=== PATIENT | male | born 1975 | race Caucasian/White ===

== ENCOUNTER 2017-09-18 07:19 | Emergency (ER) | payer OTHER ==
[~2017-09-18] VITALS: Ht 177.8 cm; Wt 68.0 kg
[2017-09-18] MEDS ORDERED: IBUPROFEN800 MG PO (09:31)
[2017-09-18] MEDS ORDERED: AMOX-CLAV 875-1 EACH PO (09:31)
== END 2017-09-18 09:58 | disposition home or self-care (01) ==
LOC: ER 07:19
DX: H92.01 Otalgia, right ear (principal)

== ENCOUNTER → 2017-09-27 | Emergency (ER) | payer OTHER ==
[~2017-09-27] MED LIST: AMOX-CLAV 875-1 EACH PO; IBUPROFEN800 MG PO
== END | disposition home or self-care (01) ==
LOC: ER 02:17
DX: H60.8X1 Other otitis externa, right ear (principal)

== ENCOUNTER → 2017-12-07 | Emergency (ER) | payer OTHER ==
[~2017-12-07] VITALS: Ht 177.8 cm; Wt 72.6 kg
[~2017-12-07] MED LIST changes: +CEFUROXIME500 MG PO; +MUPIROCIN22 GM TOP
== END | disposition home or self-care (01) ==
LOC: ER 02:12
DX: S50.362A Insect bite (nonvenomous) of left elbow, initial encounter (principal); L03.114 Cellulitis of left upper limb; M25.422 Effusion, left elbow